=== PATIENT | male | born 1950 | race Caucasian/White ===

== ENCOUNTER → 2021-05-18 | Outpatient (CLI) | payer MEDICARE ==
--- NOTE | 2021-05-18 09:34 | XR ---
EXAMINATION TYPE: 2 views bilateral hips DATE OF EXAM: 05/18/2021 COMPARISON: NONE HISTORY: 70-year-old male [id number] RT HIP PAIN, LT HIP PAIN FINDINGS: There is mild degenerative change at both hips characterized primarily by marginal spurring at both a cetabulum and femoral head neck junction. Hip joint spaces relatively maintained. No acute fracture, subluxation, dislocation. IMPRESSION: Mild bilateral hip OA. No acute osseous abnormality seen.
== END | disposition home or self-care (01) ==
LOC: RADXRYALE 09:08
PROVIDERS: ATTEND Family Medicine
DX: M16.0 Bilateral primary osteoarthritis of hip (principal)
CPT/HCPCS: 73521